=== PATIENT | male | born 1980 | race Caucasian/White ===

== ENCOUNTER 2017-10-18 14:38 | Outpatient (CLI) | payer OTHER ==
[~2017-10-18 14:38] MED LIST: HYDR1TAB32 PO; LON10 PO
[2017-10-18 15:43] LABS: ALBUMIN 3.7 g/dL (3.4-5.0); ANION GAP 13.1 (8-16); CHOL/HDL RATIO 4.1 (1-4.5); CREATININE 3.1 mg/dL (0.7-1.3); POTASSIUM 4.1 mmol/L (3.5-5.1); TOTAL BILIRUBIN 0.8 mg/dL (0.0-1.0)
[2017-10-22 06:14] LABS: CK-BB 0 % (0); CK-MB 0 % (0-3); CK-MM 98 % (97-100)
== END 2017-10-18 20:44 | disposition home or self-care (01) ==
LOC: MLB 14:38
PROVIDERS: ATTEND Internal Medicine Geriatric Medicine
DX: M62.82 Rhabdomyolysis (principal)
CPT/HCPCS: 36415; 80053; 82552

== ENCOUNTER 2018-01-23 16:51 | Outpatient (CLI) | payer OTHER ==
[2018-01-23 17:24] LABS: BASOPHILS # (AUTO) 0.2 K/uL (0.00-0.22); BASOPHILS % (AUTO) 1.8 % (0.0-2.0); EOSINOPHILS # (AUTO) 0.1 K/uL (0-0.4); EOSINOPHILS % (AUTO) 0.8 % (0.0-4.0); HEMATOCRIT 50.4 % (36-52); HEMOGLOBIN 16.4 g/dL (12.0-18.0); LYMPHOCYTES # (AUTO) 1.5 K/uL (2.0-11.5); LYMPHOCYTES % (AUTO) 16.4 % (20.5-51.1); MEAN CORPUSCULAR HEMOGLOBIN 25 pg (27-31); MEAN CORPUSCULAR HGB CONC 32 g/dL (33-37); MEAN CORPUSCULAR VOLUME 77.1 fL (80-94); MONOCYTES # (AUTO) 1.1 K/uL (0.8-1.0); MONOCYTES % (AUTO) 11.3 % (1.7-9.3); NEUTROPHILS # (AUTO) 6.4 K/uL (1.8-7.7); NEUTROPHILS % (AUTO) 69.7 % (42.2-75.2); PLATELET COUNT (AUTO) 243 K/uL (140-450); RED BLOOD CELL COUNT(AUTO) 6.55 MIL/uL (4.20-6.10); RED CELL DISTRIBUTION WIDTH 18.7 % (11.6-13.7); WHITE BLOOD COUNT (AUTO) 9.3 K/uL (4.8-10.8)
[2018-01-23 17:42] LABS: ANION GAP 15.5 (8-16); CARBON DIOXIDE 29.5 mmol/L (21-32); TOTAL BILIRUBIN 0.5 mg/dL (0.0-1.0)
[2018-01-23 17:50] LABS: URIC ACID 9.3 mg/dL (2.6-7.2)
[2018-01-23 18:12] LABS: CREATININE 4.2 mg/dL (0.7-1.3)
== END 2018-01-23 21:45 | disposition home or self-care (01) ==
LOC: MLB 16:51
PROVIDERS: ATTEND Internal Medicine Geriatric Medicine
DX: M26.622 Arthralgia of left temporomandibular joint (principal)
CPT/HCPCS: 36415; 73610; 73630; 80053; 84550; 85025; 85651; 86038; 86430

== ENCOUNTER 2018-02-13 15:05 | Outpatient (CLI) | payer OTHER ==
[2018-02-13 15:45] LABS: BASOPHILS % (AUTO) 0.4 % (0.0-2.0); EOSINOPHILS # (AUTO) 0.1 K/uL (0-0.4); HEMATOCRIT 47.9 % (36-52); HEMOGLOBIN 15.6 g/dL (12.0-18.0); LYMPHOCYTES # (AUTO) 1.4 K/uL (2.0-11.5); LYMPHOCYTES % (AUTO) 25.1 % (20.5-51.1); MEAN CORPUSCULAR HEMOGLOBIN 25 pg (27-31); MEAN CORPUSCULAR HGB CONC 33 g/dL (33-37); MEAN CORPUSCULAR VOLUME 77.5 fL (80-94); MONOCYTES # (AUTO) 0.5 K/uL (0.8-1.0); MONOCYTES % (AUTO) 9.4 % (1.7-9.3); NEUTROPHILS # (AUTO) 3.6 K/uL (1.8-7.7); NEUTROPHILS % (AUTO) 64.1 % (42.2-75.2); PLATELET COUNT (AUTO) 225 K/uL (140-450); RED BLOOD CELL COUNT(AUTO) 6.18 MIL/uL (4.20-6.10); RED CELL DISTRIBUTION WIDTH 19.6 % (11.6-13.7); WHITE BLOOD COUNT (AUTO) 5.5 K/uL (4.8-10.8)
[2018-02-13 15:48] LABS: APPEARANCE,URINE CLEAR (CLEAR); BILIRUBIN,URINE NEGATIVE (NEGATIVE); BLOOD, URINE 1+ (NEGATIVE); COLOR,URINE YELLOW (YELLOW); LEUKOCYTE ESTERASE ,URINE NEGATIVE (NEGATIVE); NITRITE, URINE NEGATIVE (NEGATIVE); UGLUCOSE NEGATIVE (NEGATIVE)
[2018-02-13 16:07] LABS: URIC ACID 10.8 mg/dL (2.6-7.2)
[2018-02-13 16:10] LABS: ALBUMIN 3.2 g/dL (3.4-5.0); ANION GAP 14.3 (8-16); CARBON DIOXIDE 27.5 mmol/L (21-32); CREATININE 3.4 mg/dL (0.7-1.3); POTASSIUM 3.8 mmol/L (3.5-5.1); TOTAL BILIRUBIN 0.5 mg/dL (0.0-1.0)
[2018-02-13 16:20] LABS: RBC,URINE 3-10 (FEW) /HPF (0-5); WBC,URINE 0-5 (RARE) /HPF (0-5)
[2018-02-13 16:35] LABS: CKMB RELATIVE INDEX 0.6 (0.0-2.5); CREATINE KINASE MB 13.4 ng/mL (0-3.6)
[2018-02-14 09:07] LABS: HEPATITIS B SURFACE ANTIGEN Negative (Negative)
== END 2018-02-13 20:07 | disposition home or self-care (01) ==
LOC: MLB 15:05
PROVIDERS: ATTEND Internal Medicine Nephrology
DX: N18.9 Chronic kidney disease, unspecified (principal)
CPT/HCPCS: 36415; 76770; 80053; 81001; 82550; 82553; 82595; 84165; 84550; 85025; 86038; 86803; 87340

== ENCOUNTER 2018-05-15 18:14 | Outpatient (CLI) | payer OTHER ==
[2018-05-15 19:27] LABS: APPEARANCE,URINE CLEAR (CLEAR); BILIRUBIN,URINE NEGATIVE (NEGATIVE); BLOOD, URINE 3+ (NEGATIVE); COLOR,URINE YELLOW (YELLOW); LEUKOCYTE ESTERASE ,URINE NEGATIVE (NEGATIVE); NITRITE, URINE NEGATIVE (NEGATIVE); UGLUCOSE NEGATIVE (NEGATIVE)
[2018-05-15 19:29] LABS: HEMATOCRIT 47.7 % (36-52); HEMOGLOBIN 15.4 g/dL (12.0-18.0); MEAN CORPUSCULAR HEMOGLOBIN 27 pg (27-31); MEAN CORPUSCULAR VOLUME 83.1 fL (80-94); RED BLOOD CELL COUNT(AUTO) 5.74 MIL/uL (4.20-6.10); WHITE BLOOD COUNT (AUTO) 7.5 K/uL (4.8-10.8)
[2018-05-15 19:30] LABS: BASOPHILS # (AUTO) 0.1 K/uL (0.00-0.22); BASOPHILS % (AUTO) 1.6 % (0.0-2.0); EOSINOPHILS # (AUTO) 0.1 K/uL (0-0.4); EOSINOPHILS % (AUTO) 1.5 % (0.0-4.0); LYMPHOCYTES # (AUTO) 1.3 K/uL (2.0-11.5); LYMPHOCYTES % (AUTO) 17.3 % (20.5-51.1); MEAN CORPUSCULAR HGB CONC 32 g/dL (33-37); MONOCYTES # (AUTO) 0.6 K/uL (0.8-1.0); MONOCYTES % (AUTO) 8.3 % (1.7-9.3); NEUTROPHILS # (AUTO) 5.4 K/uL (1.8-7.7); NEUTROPHILS % (AUTO) 71.3 % (42.2-75.2); PLATELET COUNT (AUTO) 207 K/uL (140-450); RED CELL DISTRIBUTION WIDTH 17.3 % (11.6-13.7)
[2018-05-15 19:35] LABS: CARBON DIOXIDE 30.2 mmol/L (21-32); POTASSIUM 3.2 mmol/L (3.5-5.1)
[2018-05-15 19:36] LABS: ALBUMIN 3.5 g/dL (3.4-5.0); CREATININE 3.7 mg/dL (0.7-1.3); TOTAL BILIRUBIN 0.5 mg/dL (0.0-1.0)
[2018-05-15 19:37] LABS: URIC ACID 11.9 mg/dL (2.6-7.2)
[2018-05-15 20:49] LABS: RBC,URINE 3-10 (FEW) /HPF (0-5); WBC,URINE 0-5 (RARE) /HPF (0-5)
[2018-05-15 20:58] LABS: CKMB RELATIVE INDEX 0.2 (0.0-2.5); CREATINE KINASE MB 11.7 ng/mL (0-3.6)
== END 2018-05-15 23:03 | disposition home or self-care (01) ==
LOC: MLB 18:14
PROVIDERS: ATTEND Internal Medicine Nephrology
DX: I12.9 Hypertensive chronic kidney disease with stage 1 through stage 4 chronic kidney disease, or unspecified chronic kidney disease (principal); N18.4 Chronic kidney disease, stage 4 (severe)
CPT/HCPCS: 36415; 80053; 81001; 82550; 82553; 83970; 84550; 85025

== ENCOUNTER 2018-08-10 14:48 | Outpatient (CLI) | payer OTHER ==
[2018-08-10 15:13] LABS: BASOPHILS % (AUTO) 0.5 % (0.0-2.0); EOSINOPHILS # (AUTO) 0.1 K/uL (0-0.4); EOSINOPHILS % (AUTO) 0.7 % (0.0-4.0); HEMATOCRIT 50.6 % (36-52); HEMOGLOBIN 16.6 g/dL (12.0-18.0); LYMPHOCYTES # (AUTO) 1.6 K/uL (2.0-11.5); LYMPHOCYTES % (AUTO) 18.8 % (20.5-51.1); MEAN CORPUSCULAR HEMOGLOBIN 27 pg (27-31); MEAN CORPUSCULAR HGB CONC 33 g/dL (33-37); MEAN CORPUSCULAR VOLUME 81.7 fL (80-94); MONOCYTES # (AUTO) 0.6 K/uL (0.8-1.0); MONOCYTES % (AUTO) 7.4 % (1.7-9.3); NEUTROPHILS % (AUTO) 72.6 % (42.2-75.2); PLATELET COUNT (AUTO) 227 K/uL (140-450); RED CELL DISTRIBUTION WIDTH 16.6 % (11.6-13.7); WHITE BLOOD COUNT (AUTO) 8.3 K/uL (4.8-10.8)
[2018-08-10 15:56] LABS: APPEARANCE,URINE CLEAR (CLEAR); COLOR,URINE YELLOW (YELLOW)
[2018-08-10 15:57] LABS: BILIRUBIN,URINE NEGATIVE (NEGATIVE); BLOOD, URINE 3+ (NEGATIVE); LEUKOCYTE ESTERASE ,URINE NEGATIVE (NEGATIVE); NITRITE, URINE NEGATIVE (NEGATIVE); UGLUCOSE NEGATIVE (NEGATIVE)
[2018-08-10 16:13] LABS: RBC,URINE 3-10 (FEW) /HPF (0-5); WBC,URINE 0-5 (RARE) /HPF (0-5)
[2018-08-10 17:41] LABS: ALBUMIN 3.7 g/dL (3.4-5.0); ANION GAP 16.6 (8-16); CARBON DIOXIDE 28.2 mmol/L (21-32); CREATININE 3.4 mg/dL (0.7-1.3); POTASSIUM 3.8 mmol/L (3.5-5.1); TOTAL BILIRUBIN 0.4 mg/dL (0.0-1.0)
[2018-08-10 17:50] LABS: URIC ACID 13.5 mg/dL (2.6-7.2)
== END 2018-08-10 18:57 | disposition home or self-care (01) ==
LOC: MLB 14:48
PROVIDERS: ATTEND Internal Medicine Geriatric Medicine
DX: I12.9 Hypertensive chronic kidney disease with stage 1 through stage 4 chronic kidney disease, or unspecified chronic kidney disease (principal); N18.4 Chronic kidney disease, stage 4 (severe)
CPT/HCPCS: 36415; 80053; 81001; 84550; 85025

== ENCOUNTER 2020-04-18 10:50 | Outpatient (CLI) | payer OTHER | END 2020-04-18 20:10 | disposition home or self-care (01) | LOC: MLB 10:50 | PROVIDERS: ATTEND Internal Medicine Geriatric Medicine | DX: K14.8 Other diseases of tongue (principal) | CPT/HCPCS: 87070; 87075 ==

== ENCOUNTER 2021-05-17 20:14 | Inpatient (IN) | payer OTHER ==
[~2021-05-17] VITALS: Ht 175.3 cm; Wt 102.1 kg
[2021-05-17 20:21] VITALS: BP 107/70
[2021-05-17 21:03] LABS: BASOPHILS % (AUTO) 0.3 % (0.0-2.0); EOSINOPHILS # (AUTO) 0.1 K/uL (0-0.4); EOSINOPHILS % (AUTO) 1.4 % (0.0-4.0); HEMATOCRIT 41.8 % (36-52); HEMOGLOBIN 13.7 g/dL (12.0-18.0); LYMPHOCYTES # (AUTO) 1.5 K/uL (2.0-11.5); LYMPHOCYTES % (AUTO) 22.9 % (20.5-51.1); MEAN CORPUSCULAR HEMOGLOBIN 30 pg (27-31); MEAN CORPUSCULAR HGB CONC 33 g/dL (33-37); MEAN CORPUSCULAR VOLUME 91.3 fL (80-94); MONOCYTES # (AUTO) 0.7 K/uL (0.8-1.0); MONOCYTES % (AUTO) 10.3 % (1.7-9.3); NEUTROPHILS # (AUTO) 4.2 K/uL (1.8-7.7); NEUTROPHILS % (AUTO) 65.1 % (42.2-75.2); PLATELET COUNT (AUTO) 260 K/uL (140-450); RED BLOOD CELL COUNT(AUTO) 4.57 MIL/uL (4.20-6.10); RED CELL DISTRIBUTION WIDTH 16.7 % (11.6-13.7); WHITE BLOOD COUNT (AUTO) 6.4 K/uL (4.8-10.8)
[2021-05-17 21:21] LABS: ALBUMIN 3.5 g/dL (3.4-5.0); ANION GAP 10.2 (8-16); CARBON DIOXIDE 30.4 mmol/L (21-32); POTASSIUM 3.6 mmol/L (3.5-5.1); TOTAL BILIRUBIN 0.4 mg/dL (0.0-1.0)
[2021-05-17] MEDS ORDERED: NACL 0.9% 1,000 ML IV ONE (21:25)
[2021-05-17 21:30] LABS: CREATININE 6.1 mg/dL (0.6-1.3)
[2021-05-17] MEDS ORDERED: MULT-1469 PO (23:04)
[2021-05-17] MEDS ORDERED: LISI2.5T12 PO (23:04)
[2021-05-18] MEDS ORDERED: HYDROcodone/APAP 7.5/325 MG 1 TAB PO PRN (00:05)
[2021-05-18] MEDS ORDERED: POTASSIUM CHLORIDE 10 MEQ TABER PO PRN (00:05)
[2021-05-18] MEDS ORDERED: guaiFENesin DM 200/20 MG-10 ML 10 ML UDC PO PRN (00:05)
[2021-05-18] MEDS ORDERED: ZOLPIDEM 5 MG TAB PO PRN (00:05)
[2021-05-18] MEDS ORDERED: DOCUSATE SODIUM 100 MG GELCAP PO PRN (00:05)
[2021-05-18] MEDS ORDERED: ACETAMINOPHEN 325 MG TAB PO PRN (00:05)
[2021-05-18] MEDS ORDERED: ONDANSETRON 4 MG/2 ML VIAL IM/IVP PRN (00:05)
[2021-05-18 00:47] LABS: PROTHROMBIN TIME 13.8 secs (10.8-13.4)
[2021-05-18 00:49] LABS: CHOL/HDL RATIO 3.4 (1-4.5); FREE T4 (FREE THYROXINE) 0.9 ng/dL (0.76-1.46); PHOSPHORUS 3.6 mg/dL (2.5-4.9)
[2021-05-18] MEDS ORDERED: MIDODRINE 5 MG TAB PO STA (03:23)
[2021-05-18] MEDS: PANTOPRAZOLE 40 MG TABEC PO SCH (09:29)
[2021-05-18 15:25] VITALS: BP 126/68
[2021-05-18 20:00] VITALS: BP 125/61
[2021-05-18 22:25] LABS: APPEARANCE,URINE CLEAR (CLEAR); BILIRUBIN,URINE NEGATIVE (NEGATIVE); BLOOD, URINE 2+ (NEGATIVE); COLOR,URINE YELLOW (YELLOW); LEUKOCYTE ESTERASE ,URINE NEGATIVE (NEGATIVE); NITRITE, URINE NEGATIVE (NEGATIVE); UGLUCOSE NEGATIVE (NEGATIVE)
[2021-05-18 22:27] LABS: RBC,URINE 0-5 /HPF (0-5); WBC,URINE 0-5 /HPF (0-5)
[2021-05-18 22:44] LABS: BARBITURATE, URINE NEGATIVE ng/ml (NEG <=200); BENZODIAZEPINE, URINE NEGATIVE ng/mL (NEG <=200); CANNABINOID, URINE NEGATIVE ng/mL (NEG <=50); COCAINE, URINE NEGATIVE ng/mL (NEG <=300); OPIATE, URINE NEGATIVE ng/mL (NEG <=2000); PHENCYCLIDINE SCREEN,URINE NEGATIVE ng/mL (NEG <=25)
[2021-05-19] VITALS: BP 120/63
[2021-05-19 04:00] VITALS: BP 105/52
[2021-05-19 06:07] LABS: T4 (THYROXINE) 6.2 ug/dL (4.5-12.0)
[2021-05-19 06:37] LABS: ANION GAP 13.5 (8-16); POTASSIUM 4.5 mmol/L (3.5-5.1)
[2021-05-19 06:45] LABS: BASOPHILS % (AUTO) 0.3 % (0.0-2.0); EOSINOPHILS # (AUTO) 0.1 K/uL (0-0.4); EOSINOPHILS % (AUTO) 1.7 % (0.0-4.0); HEMATOCRIT 40.2 % (36-52); HEMOGLOBIN 13.4 g/dL (12.0-18.0); LYMPHOCYTES # (AUTO) 1.4 K/uL (2.0-11.5); LYMPHOCYTES % (AUTO) 23.8 % (20.5-51.1); MEAN CORPUSCULAR HEMOGLOBIN 30 pg (27-31); MEAN CORPUSCULAR HGB CONC 33 g/dL (33-37); MEAN CORPUSCULAR VOLUME 90.5 fL (80-94); MONOCYTES # (AUTO) 0.6 K/uL (0.8-1.0); MONOCYTES % (AUTO) 9.9 % (1.7-9.3); NEUTROPHILS # (AUTO) 3.9 K/uL (1.8-7.7); NEUTROPHILS % (AUTO) 64.3 % (42.2-75.2); PLATELET COUNT (AUTO) 215 K/uL (140-450); RED BLOOD CELL COUNT(AUTO) 4.44 MIL/uL (4.20-6.10); RED CELL DISTRIBUTION WIDTH 16.4 % (11.6-13.7); WHITE BLOOD COUNT (AUTO) 6.1 K/uL (4.8-10.8)
[2021-05-19 06:48] LABS: CREATININE 6.2 mg/dL (0.6-1.3)
[2021-05-19 08:00] VITALS: BP 111/68
[2021-05-19] MEDS: PANTOPRAZOLE 40 MG TABEC PO SCH (08:12)
== END 2021-05-19 13:56 | disposition home or self-care (01) | DRG 280 ==
LOC: MED 20:14 → MTU 05-18 00:01
PROVIDERS: ADMIT Family Medicine; ATTEND Family Medicine
PROC: 5A1D70Z Performance of Urinary Filtration, Intermittent, Less than 6 Hours Per Day (ICD-10-PCS; principal; 2021-05-19)
DX: R00.0 Tachycardia, unspecified (principal); N18.6 End stage renal disease; I21.A1 Myocardial infarction type 2; N17.0 Acute kidney failure with tubular necrosis; I12.0 Hypertensive chronic kidney disease with stage 5 chronic kidney disease or end stage renal disease; D63.8 Anemia in other chronic diseases classified elsewhere; E78.2 Mixed hyperlipidemia; N28.1 Cyst of kidney, acquired; R74.01 Elevation of levels of liver transaminase levels; Z20.822 Contact with and (suspected) exposure to COVID-19; Z99.2 Dependence on renal dialysis
CPT/HCPCS: 36415; 71045; 76700; 80048; 80053; 80305; 81001; 82150; 83036; 83605; 83690; 83735; 83880; 84100; 84436; 84439; 84443; 84479; 84484; 85025; 85610; 85730; 87040; 87081; 93005; 96360; 96372; 99285; J1644

== ENCOUNTER 2022-09-05 20:52 | Emergency (ER) | payer OTHER ==
[~2022-09-05] VITALS: Ht 175.3 cm; Wt 102.1 kg
[~2022-09-05 20:52] MED LIST changes: -HYDR1TAB32 PO; +LISI2.5T12 PO; -LON10 PO; +MULT-1469 PO
[2022-09-05 21:12] VITALS: BP 119/75
--- NOTE | 2022-09-05 21:15 | NUR ---
TO LOBBY A/W BED AMBULATORY
--- NOTE | 2022-09-05 22:50 | NUR ---
PT TO BED 11
--- NOTE | 2022-09-05 23:39 | NUR ---
Dr. Savage examining patient.
[2022-09-06] MEDS ORDERED: ACET-8386 PO (00:16)
[2022-09-06 00:22] VITALS: BP 119/75
== END 2022-09-06 00:22 | disposition home or self-care (01) ==
LOC: MED 20:52
DX: R60.9 Edema, unspecified (principal); I10 Essential (primary) hypertension; N18.30 Chronic kidney disease, stage 3 unspecified; Z79.899 Other long term (current) drug therapy; Z90.49 Acquired absence of other specified parts of digestive tract; Z98.890 Other specified postprocedural states
CPT/HCPCS: 99283

== ENCOUNTER 2023-09-05 16:42 | Outpatient (CLI) | payer OTHER ==
[~2023-09-05 16:42] MED LIST changes: +ACET-8905 PO
[2023-09-05 17:02] LABS: BASOPHILS # (AUTO) 0.1 K/uL (0.00-0.22); BASOPHILS % (AUTO) 0.8 % (0.0-2.0); EOSINOPHILS # (AUTO) 0.1 K/uL (0-0.4); EOSINOPHILS % (AUTO) 1.4 % (0.0-4.0); HEMATOCRIT 44.4 % (36-52); HEMOGLOBIN 14.1 g/dL (12.0-18.0); LYMPHOCYTES # (AUTO) 1.6 K/uL (2.0-11.5); LYMPHOCYTES % (AUTO) 18.8 % (20.5-51.1); MEAN CORPUSCULAR HEMOGLOBIN 26 pg (27-31); MEAN CORPUSCULAR HGB CONC 32 g/dL (33-37); MEAN CORPUSCULAR VOLUME 81.3 fL (80-94); MONOCYTES # (AUTO) 0.9 K/uL (0.8-1.0); MONOCYTES % (AUTO) 10.9 % (1.7-9.3); NEUTROPHILS # (AUTO) 5.8 K/uL (1.8-7.7); NEUTROPHILS % (AUTO) 68.1 % (42.2-75.2); PLATELET COUNT (AUTO) 256 K/uL (140-450); RED BLOOD CELL COUNT(AUTO) 5.45 MIL/uL (4.20-6.10); RED CELL DISTRIBUTION WIDTH 19.9 % (11.6-13.7); WHITE BLOOD COUNT (AUTO) 8.5 K/uL (4.8-10.8)
[2023-09-05 17:08] LABS: ANION GAP 13.3 (8-16); CALCIUM 8.8 mg/dL (8.5-10.1); POTASSIUM 4.3 mmol/L (3.5-5.1)
[2023-09-05 17:14] LABS: CREATININE 7.7 mg/dL (0.6-1.3)
== END 2023-09-05 21:40 | disposition home or self-care (01) ==
LOC: MLB 16:42
PROVIDERS: ATTEND Internal Medicine Geriatric Medicine
DX: Z01.818 Encounter for other preprocedural examination (principal)
CPT/HCPCS: 36415; 71046; 80048; 85025